=== PATIENT | female | born 1985 | race Two or more races ===

== ENCOUNTER 2017-05-20 11:22 | Emergency (ER) | payer SELFPAY ==
[2017-05-20] MEDS ORDERED: ONDANSETRON PF 4 MG/2 ML VIAL. IV ONE (11:45)
[2017-05-20] MEDS ORDERED: IV NORMAL SALINE 1000ML BAG 1,000 ML IV ONE (11:45)
--- NOTE | 2017-05-20 11:49 | PHYS DOC ---
Past Medical History Past Medical History: No Pertinent History Adult General Chief Complaint Chief Complaint: ABDOMINAL PAIN HPI HPI Patient is a 31 year old female who presents with abdominal pain, nausea and vomiting. Patient states she's had symptoms for 2 weeks, worse with drinking liquids, improves when she puts cold water on her upper abdomen. Her pain is localized to the upper abdomen, no prior similar symptoms. She denies any history of surgeries, no vaginal bleeding or discharge, no changes in bowel and bladder. She states she missed her period in April, unsure if she could be . Patient is from [facility] and is interpreted via a friend. Review of Systems Review of Systems Constitutional: Denies fever or chills [] Eyes: Denies change in visual acuity, redness, or eye pain [] HENT: Denies nasal congestion or sore throat [] Respiratory: Denies cough or shortness of breath [] Cardiovascular: Denies chest pain GI: per hpi : Denies dysuria or hematuria [] Musculoskeletal: Denies back pain or joint pain [] Integument: Denies rash or skin lesions [] Neurologic: Denies headache, focal weakness or sensory changes [] Current Medications Current Medications Current Medications Medications (Trade) Dose Ordered Sig/Srinath Start Time Stop Time Status Last Admin Dose Admin Ondansetron HCl (Zofran) 4 mg 1X ONCE 05/20/17 11:45 05/20/17 11:48 DC 05/20/17 12:21 4 MG Sodium Chloride 1,000 ml @ 1,000 mls/hr 1X ONCE 05/20/17 11:45 05/20/17 12:44 DC 05/20/17 12:20 1,000 MLS/HR Allergies Allergies Allergies Coded Allergies Type Severity Reaction Last Updated Verified No Known Drug Allergies 05/20/17 No Physical Exam Physical Exam Constitutional: Well developed, well nourished, no acute distress, non-toxic appearance, obese HENT: Normocephalic, atraumatic, bilateral external ears normal, oropharynx dry , no oral exudates, nose normal. [] Eyes: PERRLA, EOMI, conjunctiva normal, no discharge. [] Neck: Normal range of motion, no tenderness, supple, no stridor. [] Cardiovascular:Heart rate regular with regular rhythm, no murmur [] Lungs & Thorax: Bilateral breath sounds clear to auscultation, no wheeze Abdomen: Bowel sounds normal, soft, no tenderness, no masses, no pulsatile masses, neg murphys, neg mcburney, no guarding or peritoneal signs Skin: Warm, dry, no erythema, no rash. [] Back: No tenderness, no CVA tenderness. [] Extremities: No tenderness, no cyanosis, no clubbing, ROM intact, no edema. [] Neurologic: Alert and oriented X 3, normal motor function, normal sensory function, no focal deficits noted. [] Psychologic: Affect normal, judgement normal, mood normal. [] Current Patient Data Vital Signs Vital Signs Date Time Temp Pulse Resp B/P (MAP) Pulse Ox O2 Delivery O2 Flow Rate FiO2 05/20/17 14:04 103 16 102/68 (79) 100 Room Air 05/20/17 11:35 98.1 98.1 Lab Values Laboratory Tests Test 05/20/17 11:39 05/20/17 11:40 05/20/17 12:00 POC Urine HCG, Qualitative Hcg negative (Negative) Urine Collection Type Void Urine Color Yellow Urine Clarity Clear Urine pH 6.0 Urine Specific Wilson 1.025 Urine Protein Negative mg/dL (NEG-TRACE) Urine Glucose (UA) Negative mg/dL (NEG) Urine Ketones (Stick) Negative mg/dL (NEG) Urine Blood Trace (NEG) Urine Nitrite Negative (NEG) Urine Bilirubin Negative (NEG) Urine Urobilinogen Dipstick 1.0 mg/dL (0.2 mg/dL) Urine Leukocyte Esterase Negative (NEG) Urine RBC 1-2 /HPF (0-2) Urine WBC Occ /HPF (0-4) Urine Squamous Epithelial Cells Mod /LPF Urine Bacteria Few /HPF (0-FEW) Urine Mucus Marked /LPF White Blood Count 10.5 x10^3/uL (4.0-11.0) Red Blood Count 4.55 x10^6/uL (3.50-5.40) Hemoglobin 8.3 g/dL (12.0-15.5) L Hematocrit 27.9 % (36.0-47.0) L Mean Corpuscular Volume 61 fL (79-100) L Mean Corpuscular Hemoglobin 18 pg (25-35) L Mean Corpuscular Hemoglobin Concent 30 g/dL (31-37) L Red Cell Distribution Width 19.6 % (11.5-14.5) H Platelet Count 453 x10^3/uL (140-400) H Neutrophils (%) (Auto) 61 % (31-73) Lymphocytes (%) (Auto) 22 % (24-48) L Monocytes (%) (Auto) 14 % (0-9) H Eosinophils (%) (Auto) 3 % (0-3) Basophils (%) (Auto) 1 % (0-3) Neutrophils # (Auto) 6.4 x10^3uL (1.8-7.7) Lymphocytes # (Auto) 2.3 x10^3/uL (1.0-4.8) Monocytes # (Auto) 1.5 x10^3/uL (0.0-1.1) H Eosinophils # (Auto) 0.3 x10^3/uL (0.0-0.7) Basophils # (Auto) 0.1 x10^3/uL (0.0-0.2) Platelet Estimate Pending Sodium Level 138 mmol/L (136-145) Potassium Level 3.3 mmol/L (3.5-5.1) L Chloride Level 102 mmol/L (98-107) Carbon Dioxide Level 26 mmol/L (21-32) Anion Gap 10 (6-14) Blood Urea Nitrogen 11 mg/dL (7-20) Creatinine 0.7 mg/dL (0.6-1.0) Estimated GFR (Cockcroft-Gault) 97.6 BUN/Creatinine Ratio 16 (6-20) Glucose Level 107 mg/dL (70-99) H Calcium Level 8.4 mg/dL (8.5-10.1) L Total Bilirubin 0.6 mg/dL (0.2-1.0) Aspartate Amino Transferase (AST) 146 U/L (15-37) H Alanine Aminotransferase (ALT) 129 U/L (14-59) H Alkaline Phosphatase 80 U/L (46-116) Total Protein 7.8 g/dL (6.4-8.2) Albumin 3.5 g/dL (3.4-5.0) Albumin/Globulin Ratio 0.8 (1.0-1.7) L Lipase 405 U/L (73-393) H Laboratory Tests 05/20/17 12:00 Laboratory Tests 05/20/17 12:00 EKG EKG [] Radiology/Procedures Radiology/Procedures Examination: Ultrasound Abdomen Limited History: History of upper abdominal pain, vomiting Comparison: None available Findings: The pancreas is not well visualized bowel gas. No evidence of gallstones identified. The gallbladder wall thickening measures 2.2 mm. The liver measures 15.1 cm in length. There is increased echogenicity noted throughout the liver likely hepatic steatosis. The common bile duct measures 2.6 mm in diameter. The right kidney measures 11.7 cm in length. Impression: Increased echogenicity noted throughout the liver likely hepatic steatosis. [] Course & Med Decision Making Course & Med Decision Making Pertinent Labs and Imaging studies reviewed. (See chart for details) Pt appears to be in no distress, slightly dry. UA/ucg/labs ordered. Pt given zofran and 1 L NS Chin symptoms well controlled, no active abdominal pain here in the ED. This ultrasound was reviewed, no acute findings to support abdominal pain. Patient has no signs or symptoms of blood loss. She does report that she has heavy periods when she has them. I recommended the patient start iron supplements, scheduled follow-up with primary care physician. Discharged with prescriptions for ferrous sulfate, Zofran and Pepcid. Return percussions given. Dragon Disclaimer Dragon Disclaimer This electronic medical record was generated, in whole or in part, using a voice recognition dictation system. Departure Departure Impression: Primary Impression: Abdominal pain Additional Impression: Anemia Disposition: 01 HOME, SELF-CARE Condition: STABLE Scripts Famotidine (PEPCID) 20 Mg Tablet 20 MG PO HS, #30 TAB Prov: NASIR SIGALA MD 05/20/17 Ondansetron (ZOFRAN ODT) 4 Mg Tab.rapdis 1 TAB SL Q8HRS for NAUSEA, #10 TAB Prov: NASIR SIGALA MD 05/20/17 Ferrous Sulfate (FERROUS SULFATE) 325 Mg Tablet 1 TAB PO DAILY, #30 TAB 0 Refills Prov: NASIR SIGALA MD 05/20/17 Problem Qualifiers NASIR SIGALA MD May 20, 2017 11:49
[2017-05-20 11:57] LABS: BILIRUBIN,URINE NEGATIVE (NEG); GLUCOSE,URINE NEGATIVE (NEG); NITRITE,URINE NEGATIVE (NEG); PROTEIN,URINE NEGATIVE (NEG-TRACE)
[2017-05-20 12:05] LABS: BACTERIA,URINE FEW /HPF (0-FEW); SQUAMOUS EPITHELIAL CELL,UR MOD /LPF; WBC,URINE OCC /HPF (0-4)
[2017-05-20 12:10] LABS: BASO # 0.1 x10^3/uL (0.0-0.2); BASO % 1 % (0-3); EOS % 3 % (0-3); HEMATOCRIT 27.9 % (36.0-47.0); HEMOGLOBIN 8.3 g/dL (12.0-15.5); LYMPH # 2.3 x10^3/uL (1.0-4.8); LYMPH % 22 % (24-48); MEAN CORPUSCULAR HEMOGLOBIN 18 pg (25-35); MEAN CORPUSCULAR HGB CONC 30 g/dL (31-37); MEAN CORPUSCULAR VOLUME 61 fL (79-100); MONO % 14 % (0-9); NEUT % 61 % (31-73); PLATELET COUNT 453 x10^3/uL (140-400); RED BLOOD COUNT 4.55 x10^6/uL (3.50-5.40); RED CELL DISTRIBUTION WIDTH 19.6 % (11.5-14.5); WHITE BLOOD COUNT 10.5 x10^3/uL (4.0-11.0)
[2017-05-20 12:18] LABS: CALCIUM 8.4 mg/dL (8.5-10.1); CREATININE 0.7 mg/dL (0.6-1.0); GFR 97.6; POTASSIUM 3.3 mmol/L (3.5-5.1)
[2017-05-20 12:23] LABS: ALBUMIN 3.5 g/dL (3.4-5.0); ALBUMIN/GLOBULIN RATIO 0.8 (1.0-1.7); TOTAL BILIRUBIN 0.6 mg/dL (0.2-1.0); TOTAL PROTEIN 7.8 g/dL (6.4-8.2)
--- NOTE | 2017-05-20 13:00 | RAD ---
Examination: Ultrasound Abdomen Limited History: History of upper abdominal pain, vomiting Comparison: None available Findings: The pancreas is not well visualized bowel gas. No evidence of gallstones identified. The gallbladder wall thickening measures 2.2 mm. The liver measures 15.1 cm in length. There is increased echogenicity noted throughout the liver likely hepatic steatosis. The common bile duct measures 2.6 mm in diameter. The right kidney measures 11.7 cm in length. Impression: Increased echogenicity noted throughout the liver likely hepatic steatosis.
[2017-05-20] MEDS ORDERED: FAMO-63 PO (13:41)
[2017-05-20] MEDS ORDERED: FERR-26 PO (13:41)
[2017-05-20] MEDS ORDERED: ONDA4TAB10 SL (13:41)
[2017-05-20 14:04] VITALS: BP 102/68
[2017-05-20 14:46] LABS: ANISOCYTOSIS SLIGHT; HYPOCHROMIA MARKED; MICROCYTOSIS MARKED; PLT ESTIMATE INCREASED (ADEQUATE); POLYCHROMASIA SLIGHT; TARGET CELLS FEW
[2017-05-20 14:47] LABS: SCHISTOCYTES FEW
== END 2017-05-20 14:04 | disposition home or self-care (01) ==
LOC: ER 11:22
DX: R10.9 Unspecified abdominal pain (principal); R11.2 Nausea with vomiting, unspecified; D64.9 Anemia, unspecified
CPT/HCPCS: 36415; 76705; 80053; 81001; 81025; 83690; 85025; 96361; 96374; 99285; J2405; J7030

== ENCOUNTER 2017-07-12 17:26 | Emergency (ER) | payer SELFPAY ==
[2017-07-12 18:22] LABS: URINE HCG POC HCG NEGATIVE (Negative)
[2017-07-12] MEDS: ONDANSETRON ODT 4 MG TAB.RAPDIS. PO ×2 (19:26)
[2017-07-12] MEDS: IBUPROFEN 800 MG TABLET. PO ×2 (19:26)
[2017-07-12 19:32] LABS: INFLUENZA A PATIENT NEGATIVE (NEGATIVE); INFLUENZA B PATIENT NEGATIVE (NEGATIVE); OBC FLU VALID
== END 2017-07-12 19:55 | disposition home or self-care (01) ==
LOC: ER 17:26
DX: B34.9 Viral infection, unspecified (principal)
CPT/HCPCS: 81025; 87804; 87804-59; 99284; Q0162